=== PATIENT | male | born 1990 | race Caucasian/White ===

== ENCOUNTER 2020-06-06 18:10 | Emergency (ER) | payer OTHER | END 2020-06-06 22:10 | disposition home or self-care (01) | LOC: FER 18:10 | DX: S90.821A Blister (nonthermal), right foot, initial encounter (principal); S90.822A Blister (nonthermal), left foot, initial encounter; W17.89XA Other fall from one level to another, initial encounter; Y92.59 Other trade areas as the place of occurrence of the external cause | CPT/HCPCS: 73630 ==